=== PATIENT | female | born 1970 | race Caucasian/White ===

== ENCOUNTER 2018-01-01 08:49 | Outpatient (CLI) | payer MEDICARE, MEDICAID ==
--- NOTE | 2018-01-01 12:09 | CT ---
CT ABDOMEN AND PELVIS WITH CONTRAST: Date: 01/01/18 HISTORY: K31.84, gastroparesis. R10.11, right upper quadrant pain. R50.9, Crohn's. COMPARISON: MRI abdomen dated 03/08/17. FINDINGS: Lung bases are clear. No pericardial effusion. Diffuse hepatic steatosis. Prior cholecystectomy. No i ntrahepatic or extrahepatic biliary dilatation. There is mild atrophy of the pancreas, which is thinned. Spleen is unremarkable, as well as the adrenal glands. There is significant contrast remaining within the stomach. There appears to be a gastric bypass procedure. Nonobstructed bilateral renal calculi. No abnormal enhancing renal mass. No hydroureteronephrosis. Th ere are phleboliths in the pelvis. Appendix is visualized and is normal. On the axial images, there a ppear to be phleboliths in the tip of the appendix, although this is actually within the gonadal vein s. No free intraperitoneal gas or fluid. Moderate stool burden throughout the colon. There is a small, f at-containing ventral hernia, supraumbilical. Mild atherosclerotic plaque in the aorta. No aneurysmal dilatation. Moderate degenerative disease of the pubic symphysis. IMPRESSION: 1. Nonobstructive bilateral renal calculi. 2. Diffuse hepatic steatosis. 3. Moderate contrast retained within the stomach can be seen with gastroparesis. There is evidence o f prior gastric bypass. 4. Small, fat-containing ventral hernia, likely an incisional hernia. 5. Normal appearance of the appendix. 6. Phleboliths in the right gonadal veins in the pelvis. 7. Moderate stool burden in the colon. POS: OFF
[2018-01-01] MEDS ORDERED: Iopamidol 370 76% 100 ML VIAL ONE (12:59)
== END 2018-01-01 08:50 | disposition home or self-care (01) ==
LOC: CT 08:49
PROVIDERS: ATTEND Internal Medicine Gastroenterology
DX: K50.90 Crohn's disease, unspecified, without complications (principal); R10.11 Right upper quadrant pain; K31.84 Gastroparesis; N20.0 Calculus of kidney; K76.0 Fatty (change of) liver, not elsewhere classified; K43.9 Ventral hernia without obstruction or gangrene; I87.8 Other specified disorders of veins
CPT/HCPCS: 74177

== ENCOUNTER 2018-02-13 11:30 | Inpatient (IN) | payer MEDICARE, MEDICAID ==
[2018-02-13 12:12] VITALS: BMI 21.9
[2018-02-17] MEDS ORDERED: Ketorolac Tromethamine 30 MG/ML VIAL ONE (10:05)
[2018-02-17] MEDS ORDERED: cefOXitin 2 GM, Syringe 1 ML in Sterile Water 10 ML SLOW IVP SCH (10:15)
[2018-02-17] MEDS ORDERED: Morphine 4 MG/ML VIAL ONE (13:32)
[2018-02-17] MEDS ORDERED: Midazolam HCl 2 mg/2 ml Vial ONE (13:32)
[2018-02-17] MEDS ORDERED: Fentanyl 250 MCG/5 ML VIAL ONE ×3 (13:46→16:56)
[2018-02-17] MEDS ORDERED: Naloxone HCl 0.4 mg/ml Vial IVP PRN (14:00)
[2018-02-17] MEDS ORDERED: Bupivacaine 0.25% 10 ML VIAL EPIDURAL PRN (14:00)
[2018-02-17] MEDS ORDERED: HYDROcodone/Acetaminophen 5/325 mg Tablet PO PRN ×2 (14:00)
[2018-02-17] MEDS ORDERED: Ondansetron HCl/PF 4 MG/2 ML Vial IVP PRN ×3 (14:00→19:47)
[2018-02-17] MEDS ORDERED: diphenhydrAMINE 25 MG CAP PO PRN (14:00)
[2018-02-17] MEDS ORDERED: Naloxone HCl 0.4 mg/ml Vial IV PRN (14:00)
[2018-02-17] MEDS ORDERED: diphenhydrAMINE 50 MG/ML VIAL IVP PRN (14:00)
[2018-02-17] MEDS ORDERED: traMADol HCl 50 MG TAB PO PRN ×2 (14:00)
[2018-02-17] MEDS ORDERED: diphenhydrAMINE 50 MG/ML VIAL IM PRN (14:00)
[2018-02-17] MEDS ORDERED: Promethazine HCl 25 MG SUPP PR PRN (14:00)
[2018-02-17] MEDS ORDERED: Zolpidem Tartrate 5 MG TAB PO PRN (14:00)
[2018-02-17] MEDS ORDERED: Hydrocerin (Eucerin) Cream 120 gm Jar TOP PRN (14:00)
[2018-02-17] MEDS ORDERED: Promethazine HCl 25 MG/ML VIAL IM PRN ×3 (14:00→19:47)
[2018-02-17] MEDS ORDERED: Dexamethasone 20 MG/5 ML VIAL ONE (14:49)
[2018-02-17] MEDS ORDERED: Glycopyrrolate 0.2 MG/ML 5 ML SYRINGE ONE (14:49)
[2018-02-17] MEDS ORDERED: Lidocaine 1% PF 5 ML VIAL ONE (14:49)
[2018-02-17] MEDS ORDERED: PROPOFOL 200 MG/20 ML VIAL ONE (14:49)
[2018-02-17] MEDS ORDERED: Ondansetron HCl/PF 4 MG/2 ML Vial ONE (14:49)
[2018-02-17] MEDS ORDERED: Ropivacaine 0.2% HCl/PF 20 ML ONE (15:35)
[2018-02-17] MEDS ORDERED: Promethazine HCl 25 MG/ML VIAL SLOW IVP PRN (16:56)
[2018-02-17] MEDS ORDERED: HYDROmorphone 2 MG/ML VIAL SLOW IVP PRN (16:56)
[2018-02-17] MEDS ORDERED: Promethazine HCl 25 MG/ML VIAL ONE (17:03)
[2018-02-17] MEDS ORDERED: Bupivacaine 0.5% 10 ML VIAL ONE (17:23)
[2018-02-17] MEDS ORDERED: Bupivacaine 0.25% HCL 30 ML VIAL ONE (17:25)
[2018-02-17] MEDS ORDERED: Ketorolac Tromethamine 30 MG/ML VIAL IVP SCH (18:00)
[2018-02-17] MEDS ORDERED: Acetaminophen 1,000 MG in Premix Bag 1 BAG IVPB SCH ×2 (18:00)
[2018-02-17] MEDS ORDERED: Dextrose 5% in Water 1,000 ML IV PRN (19:47)
[2018-02-17] MEDS ORDERED: hydrALAZINE 20 MG/ML VIAL SLOW IVP PRN (19:47)
[2018-02-17] MEDS ORDERED: Dextrose 50% Abboject 50 ML SYRINGE SLOW IVP PRN (19:47)
[2018-02-17] MEDS: Famotidine 40 MG/4 ML VIAL SLOW IVP SCH (20:57)
[2018-02-17] MEDS: Acetaminophen 1,000 MG in Premix Bag 1 BAG IVPB SCH (20:58)
[2018-02-17] MEDS: Ketorolac Tromethamine 30 MG/ML VIAL IVP SCH (20:58)
[2018-02-17] MEDS: D5 1/2 NS w/20 mEq KCL 1,000 ML IV SCH (20:58)
[2018-02-17] MEDS ORDERED: Famotidine/PF 20 mg/2ml Vial SLOW IVP SCH (21:00)
[2018-02-18] MEDS: Ketorolac Tromethamine 30 MG/ML VIAL IVP SCH ×4 (03:56→20:30)
[2018-02-18] MEDS: Acetaminophen 1,000 MG in Premix Bag 1 BAG IVPB SCH ×4 (03:56→20:28)
[2018-02-18 05:31] LABS: #Eosinphils 0.1 thou/uL (0.0-0.7); #Lymphocytes 1.1 thou/uL (1.20-3.40); #Monocytes 0.6 thou/uL (0.11-0.59); #Neutrophils 9.5 thou/uL (1.40-6.50); %Basophils 0.2 % (0.0-1.0); %Eosinophils 0.5 % (0.0-10.0); %Lymphocytes 9.7 % (21.0-51.0); %Neutrophils 84.6 % (42.0-75.0); Hemoglobin 11.6 g/dL (12.0-16.0); Mean Corpuscular HGB CONC 33.2 g/dL (32.0-36.0); Mean Corpuscular Hemoglobin 31.5 pg (27.0-31.0); Mean Corpuscular Volume 94.9 fl (81.0-99.0); Mean Platelet Volume 7.4 fL (7.4-10.4); Platelet Count 210 thou/uL (130-400); RBC Distribution Width 11.5 % (11.5-14.5); Red Blood Cell (RBC) Count 3.68 mill/uL (4.20-5.40); White Blood Cell (WBC) Count 11.3 thou/uL (4.8-10.8)
[2018-02-18 05:44] LABS: ALT (SGPT) 35 U/L (8-55); AST (SGOT) 34 U/L (5-34); Alkaline Phosphatase 49 U/L (40-150); Anion Gap 9 mmol/L (10-20); BUN (Urea Nitrogen) 17 mg/dL (7.0-18.7); Bilirubin, Total 0.9 mg/dL (0.2-1.2); Calc. Creatinine Clearance 73 mL/min (70-130); Calcium 8.8 mg/dL (7.8-10.44); Carbon Dioxide 25 mmol/L (22-29); Chloride 106 mmol/L (98-107); Estimated GFR-MDRD 62; Globulin 2.3 g/dL (2.4-3.5); Glucose 170 mg/dL (70-105); Potassium 4.1 mmol/L (3.5-5.1); Protein, Total 5.3 g/dL (6.0-8.3); Sodium 136 mmol/L (136-145)
[2018-02-18] MEDS: D5 1/2 NS w/20 mEq KCL 1,000 ML IV SCH ×2 (07:16→15:40)
[2018-02-18] MEDS ORDERED: Enoxaparin Sodium 40 MG/0.4 ML SYRINGE SC SCH ×2 (09:00→09:15)
[2018-02-18] MEDS ORDERED: Famotidine 20 MG TAB PO SCH (09:00)
[2018-02-18] MEDS: Famotidine 40 MG/4 ML VIAL SLOW IVP SCH ×3 (09:19→20:29)
[2018-02-18] MEDS: fentaNYL Citrate/PF 1,250 MCG, Bupivacaine 25 ML in Sodium Chloride 0.9% 250 ML 200 ML EPIDURAL SCH (15:36)
[2018-02-18] MEDS ORDERED: Morphine 4 MG/ML VIAL SLOW IVP SCH (19:45)
[2018-02-18] MEDS ORDERED: HYDROcodone/Acetaminophen 5/325 mg Tablet PO PRN ×2 (23:59)
[2018-02-19] MEDS: Ketorolac Tromethamine 30 MG/ML VIAL IVP SCH ×4 (02:30→20:30)
[2018-02-19] MEDS: D5 1/2 NS w/20 mEq KCL 1,000 ML IV SCH ×2 (02:32→12:41)
[2018-02-19] MEDS: Famotidine 40 MG/4 ML VIAL SLOW IVP SCH ×2 (09:40→21:00)
[2018-02-19] MEDS: Enoxaparin Sodium 40 MG/0.4 ML SYRINGE SC SCH (09:40)
[2018-02-19] MEDS: fentaNYL Citrate/PF 1,250 MCG, Bupivacaine 25 ML in Sodium Chloride 0.9% 250 ML 200 ML EPIDURAL SCH (13:10)
[2018-02-20] MEDS: Ketorolac Tromethamine 30 MG/ML VIAL IVP SCH ×4 (02:22→23:09)
[2018-02-20 04:33] LABS: #Eosinphils 0.4 thou/uL (0.0-0.7); #Lymphocytes 1.3 thou/uL (1.20-3.40); #Monocytes 0.3 thou/uL (0.11-0.59); #Neutrophils 6.6 thou/uL (1.40-6.50); %Basophils 0.1 % (0.0-1.0); %Eosinophils 4.6 % (0.0-10.0); %Lymphocytes 14.6 % (21.0-51.0); %Monocytes 3.3 % (0.0-10.0); %Neutrophils 77.4 % (42.0-75.0); Hemoglobin 9.4 g/dL (12.0-16.0); Mean Corpuscular Hemoglobin 31.5 pg (27.0-31.0); Mean Corpuscular Volume 95.4 fl (81.0-99.0); Mean Platelet Volume 7.2 fL (7.4-10.4); Platelet Count 165 thou/uL (130-400); RBC Distribution Width 11.3 % (11.5-14.5); Red Blood Cell (RBC) Count 2.99 mill/uL (4.20-5.40); White Blood Cell (WBC) Count 8.5 thou/uL (4.8-10.8)
[2018-02-20 04:41] LABS: Anion Gap 9 mmol/L (10-20); BUN (Urea Nitrogen) 12 mg/dL (7.0-18.7); Calc. Creatinine Clearance 94 mL/min (70-130); Calcium 8.6 mg/dL (7.8-10.44); Carbon Dioxide 20 mmol/L (22-29); Chloride 112 mmol/L (98-107); Estimated GFR-MDRD 82; Glucose 137 mg/dL (70-105); Sodium 137 mmol/L (136-145)
[2018-02-20] MEDS: Famotidine 40 MG/4 ML VIAL SLOW IVP SCH ×2 (08:30→23:08)
--- NOTE | 2018-02-20 09:29 | PRG ---
DATE OF SERVICE: 02/20/2018 Ms. Ortez is postoperative day #3 from a laparotomy with a distal gastrectomy and revision of gastro jejunostomy as well as a small bowel stricturoplasty. She continues to tolerate her clear liquids an d denies nausea or vomiting. She does complain of a little more upper abdominal pain that she had pr eviously. Her epidural, which is still in place has been somewhat sporadic depending on whether she is lying down or standing up. She is ambulating well. PHYSICAL EXAMINATION: VITAL SIGNS: She is afebrile with temperature 99, pulse is 83-87, blood pressure 121/79. Urine outp ut is good. She denies a bowel movement, but has had flatus. LUNGS: Clear to auscultation. ABDOMEN: Soft with minimal appropriate tenderness and her incision is healing nicely. She does have normoactive to hypoactive bowel sounds. LABORATORY STUDIES: Reveal that her hemoglobin is 9.4 with a white blood cell count of 8.5, platelet count is 165. Chemistry profile reveals that her CO2 level is a little low at 20. ASSESSMENT: I believe she is doing well following her surgery. I am not certain what the reason for her increased discomfort is, but suspect that it is incisional. The plan is to remove her epidural catheter today and advance up to a full liquid diet. She has horr ible problems with constipation. This will be treated with a couple of enemas today and I will start her on MiraLax. I am hopeful that if she tolerates her diet and remains stable, that she will be ap propriate for discharge tomorrow.
[2018-02-20] MEDS ORDERED: Fleet Enema 133 ML BOT FS SCH ×3 (09:45→15:00)
[2018-02-20] MEDS: D5 1/2 NS w/20 mEq KCL 1,000 ML IV SCH ×2 (10:30)
[2018-02-20] MEDS: Polyethylene Glycol 3350 17 GM Packet PO SCH ×2 (10:30→21:39)
[2018-02-20] MEDS ORDERED: Morphine 4 MG/ML VIAL SLOW IVP PRN ×2 (11:50→11:52)
[2018-02-20] MEDS: Morphine 4 MG/ML VIAL SLOW IVP PRN ×2 (12:00→15:59)
[2018-02-20] MEDS: Acetaminophen 1,000 MG in Premix Bag 1 BAG IVPB SCH ×4 (12:00→23:15)
[2018-02-20] MEDS: Enoxaparin Sodium 40 MG/0.4 ML SYRINGE SC SCH (14:46)
[2018-02-20] MEDS ORDERED: D5 1/2 NS w/20 mEq KCL 1,000 ML IV SCH (17:30)
[2018-02-20] MEDS: Hydrocodone-Acetamin 15 ML UDCUP PO PRN ×2 (17:46→21:39)
[2018-02-21] MEDS: Ketorolac Tromethamine 30 MG/ML VIAL IVP SCH ×3 (03:12→13:22)
[2018-02-21] MEDS: Hydrocodone-Acetamin 15 ML UDCUP PO PRN ×3 (03:13→13:33)
[2018-02-21 04:59] LABS: #Eosinphils 0.3 thou/uL (0.0-0.7); #Lymphocytes 1.1 thou/uL (1.20-3.40); #Monocytes 0.5 thou/uL (0.11-0.59); #Neutrophils 4.3 thou/uL (1.40-6.50); %Basophils 0.5 % (0.0-1.0); %Lymphocytes 17.8 % (21.0-51.0); %Monocytes 8.4 % (0.0-10.0); %Neutrophils 68.4 % (42.0-75.0); Hemoglobin 9.8 g/dL (12.0-16.0); Mean Corpuscular HGB CONC 32.9 g/dL (32.0-36.0); Mean Corpuscular Hemoglobin 31.9 pg (27.0-31.0); Mean Corpuscular Volume 96.8 fl (81.0-99.0); Mean Platelet Volume 7.3 fL (7.4-10.4); Platelet Count 183 thou/uL (130-400); RBC Distribution Width 11.2 % (11.5-14.5); Red Blood Cell (RBC) Count 3.08 mill/uL (4.20-5.40); White Blood Cell (WBC) Count 6.3 thou/uL (4.8-10.8)
--- NOTE | 2018-02-21 06:05 | OP ---
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 OPERATION PERFORMED: Exploratory laparotomy with partial distal gastrectomy and creation of a new Ro ux-en-Y gastrojejunostomy, Belinda-Maia strictureplasty of the small bowel. SURGEON: Brijesh Caceres M.D. ANESTHESIA: General endotracheal. INDICATIONS: The patient is a 47-year-old female. She underwent a distal gastrectomy previously sec ondary to an inflamed obstructive mass within her distal stomach. A Marsha-en-Y reconstruction was cre ated at that time. She has recently had increasing problems with reflux and vomiting and she has wha t appears to be ulceration and stricturing at her prior gastrojejunal anastomosis. She is taken to [facility] operating room at this time for revision. DESCRIPTION OF OPERATION: Informed consent was obtained. The patient was taken to the operating michelle where general endotracheal anesthesia was obtained with the patient in supine position. Abdomen wa s prepped with ChloraPrep and draped in sterile fashion. Midline incision was reopened and dissectio n was carried through skin and subcutaneous tissue. Dissection was carried carefully into the abdomi nal cavity. She has had several operations performed through this upper midline incision. Adhesions were carefully mobilized to gain access into the abdominal cavity. With extensive dissection, I was able to clearly identify the residual stomach, the Marsha limb of the small bowel, the distal jejunoje junostomy. I explored all areas of the abdominal cavity. The small bowel distal to the jejunojejuno stomy was entirely decompressed down to the ileocecal valve. She had an extensive volume of hard for med stool throughout all segments of her colon consistent with chronic constipation. The small bowel of the Marsha limb had a somewhat thickened edematous consistency. There was a stricture just proxima l to the jejunojejunostomy. There was an area just distal to it that had a mild narrowed appearance, but really was not very strictured. The bowel adjacent to the small bowel anastomosis actually had some mild dilatation. The stricture on the proximal aspect, I felt could potentially be symptomatic and I decided to address this with the strictureplasty. I created a longitudinal enterotomy measurin g about 3 cm in length and open this in a full thickness fashion. I then closed this transversely wi th a running locking suture of 3-0 Vicryl. I buttressed this with several interrupted Lembert suture s of 3-0 silk. Attention was then turned to the stomach. I transected the distal stomach with 2 fires of the ALICE-75 stapler. The stomach at this level was relatively thickened and I was concerned about the integrity of the staple line, but with enough stapler compression, I felt that it was able to transect the sto mach and formed the ame appropriately. I then divided the small bowel just distal to the anastom osis with another fire of the ALICE stapler and took down the intervening small bowel mesentery and pas sed a segment off the field. The segment of the small bowel appeared to be viable and of normal avis flori. I created a gastrojejunostomy with the outflow to the left side. This was on the posterior dis gladis aspect of the stomach and was the entire length of the ALICE-75 stapler. The common opening was th en closed with a running locking suture of 3-0 Vicryl, which was inverted with a series of interrupte d sutures of 3-0 silk. I then inverted ame of the stomach staple line with interrupted sutures o f 3-0 silk. Finally, I buttressed the anastomosis appropriately with interrupted sutures of 3-0 silk . The operation was performed without any enteric contents being spilled. The area was thoroughly i rrigated with several liters of warm saline and all irrigant was aspirated. Two sheets of Seprafilm were placed within the abdominal cavity. Fascia was closed with running suture of loop #1 PDS. Skin edges were approximated with skin ame. Telfa and dry gauze dressing was placed externally. The re were no complications. Patient tolerated the procedure well and was taken to recovery room in sta ble condition.
[2018-02-21] MEDS: Polyethylene Glycol 3350 17 GM Packet PO SCH (08:38)
[2018-02-21] MEDS: Enoxaparin Sodium 40 MG/0.4 ML SYRINGE SC SCH (08:38)
[2018-02-21] MEDS: Famotidine 40 MG/4 ML VIAL SLOW IVP SCH (08:39)
[2018-02-21] MEDS: Acetaminophen 1,000 MG in Premix Bag 1 BAG IVPB SCH (13:22)
[2018-02-21 15:13] VITALS: BP 117/79; TEMP 98.1
[2018-02-21] MEDS ORDERED: Famotidine/PF 20 mg/2ml Vial SLOW IVP SCH (21:00)
--- NOTE | 2018-02-23 10:41 | DIS ---
DATE OF ADMISSION: 02/17/2018 DATE OF DISCHARGE: 02/21/2018 ADMISSION DIAGNOSES: Stenosis of a gastrojejunostomy (history of Marsha-en-Y reconstruction following distal gastrectomy). POSTOPERATIVE DIAGNOSES: Stenosis of a gastrojejunostomy (history of Marsha-en-Y reconstruction follow ing distal gastrectomy with additional finding of a small bowel stricture and extensive constipation. ADMISSION HISTORY: The patient is a 47-year-old white female. She has an unusual unfortunate histor y of distal gastric obstruction 5-6 years ago for which she underwent a distal gastrectomy with findi ng of inflammatory process within her distal stomach. This is felt to be an autoimmune process and p erhaps some variant of Crohn's disease. She has been maintained on appropriate medication. She has recently had a prolonged course of issues with retained gastric contents with nausea, vomiting and re flux. She presents at this time for distal gastrectomy with revision and creation of new gastrojejun ostomy. HOSPITAL COURSE: She underwent open surgery on the day of presentation. A new gastrojejunostomy was created utilizing the same Marsha-en-Y drainage. There was also a finding of a small bowel stricture near her jejunojejunostomy and this was treated with stricturoplasty. She was also found to have ext ensive constipation throughout her colon. Following her surgery she had a fairly uneventful hospitalization. She tolerated liquids immediately after surgery. She never had any significant nausea and never had any vomiting. She noted that her reflux was better. Her appropriate abdominal pain seemed to improve with her hospitalization. She had an epidural initially for pain control. As of the date of her discharge on 02/21/2018, she was t olerating a full liquid diet. Her pain was appropriately controlled with oral pain medication. She had remained entirely hemodynamically stable. She was stable for discharge home at that time with in structions to follow up with myself in 2 weeks. She was given a discharge prescription for liquid hy drocodone.
== END 2018-02-21 16:45 | disposition home or self-care (01) | DRG 327 ==
LOC: SURG A 02-17 09:31
PROVIDERS: ADMIT Specialist; ATTEND Specialist
PROC: 0D160ZA Bypass Stomach to Jejunum, Open Approach (ICD-10-PCS; principal; 2018-02-17)
PROC: 0DB60ZZ Excision of Stomach, Open Approach (ICD-10-PCS; 2018-02-17)
PROC: 0DN80ZZ Release Small Intestine, Open Approach (ICD-10-PCS; 2018-02-17)
PROC: 3E0T3BZ Introduction of Anesthetic Agent into Peripheral Nerves and Plexi, Percutaneous Approach (ICD-10-PCS; 2018-02-17)
DX: K91.89 Other postprocedural complications and disorders of digestive system (principal); K50.90 Crohn's disease, unspecified, without complications; K31.89 Other diseases of stomach and duodenum; K21.9 Gastro-esophageal reflux disease without esophagitis; Z90.3 Acquired absence of stomach [part of]; K59.09 Other constipation; K43.2 Incisional hernia without obstruction or gangrene; Z79.899 Other long term (current) drug therapy
CPT/HCPCS: 36415; 80048; 80053; 85025; 88307; A4216; J0131; J0694; J1100; J1650; J1885; J2001; J2250; J2270; J2405; J2550; J2704; J2795; J3010; J3490; J7050; S0020

== ENCOUNTER 2018-02-13 11:54 | Outpatient (CLI) | payer MEDICARE, MEDICAID ==
[2018-02-13 13:20] LABS: #Basophils 0.1 thou/uL (0.0-0.2); #Eosinphils 0.3 thou/uL (0.0-0.7); #Lymphocytes 2.8 thou/uL (1.20-3.40); #Monocytes 0.6 thou/uL (0.11-0.59); #Neutrophils 3.9 thou/uL (1.40-6.50); %Basophils 1.3 % (0.0-1.0); %Eosinophils 4.4 % (0.0-10.0); %Lymphocytes 36.3 % (21.0-51.0); %Monocytes 7.7 % (0.0-10.0); %Neutrophils 50.4 % (42.0-75.0); Hemoglobin 12.6 g/dL (12.0-16.0); Mean Corpuscular HGB CONC 32.9 g/dL (32.0-36.0); Mean Corpuscular Hemoglobin 30.9 pg (27.0-31.0); Mean Platelet Volume 7.5 fL (7.4-10.4); Platelet Count 232 thou/uL (130-400); RBC Distribution Width 11.5 % (11.5-14.5); Red Blood Cell (RBC) Count 4.08 mill/uL (4.20-5.40); White Blood Cell (WBC) Count 7.8 thou/uL (4.8-10.8)
[2018-02-13 13:46] LABS: ALT (SGPT) 44 U/L (8-55); AST (SGOT) 45 U/L (5-34); Albumin 3.8 g/dL (3.5-5.0); Alkaline Phosphatase 88 U/L (40-150); Anion Gap 9 mmol/L (10-20); BUN (Urea Nitrogen) 19 mg/dL (7.0-18.7); Bilirubin, Total 0.3 mg/dL (0.2-1.2); Calc. Creatinine Clearance 0 mL/min (70-130); Calcium 9.4 mg/dL (7.8-10.44); Carbon Dioxide 22 mmol/L (22-29); Chloride 108 mmol/L (98-107); Estimated GFR-MDRD 69; Globulin 2.9 g/dL (2.4-3.5); Glucose 100 mg/dL (70-105); Protein, Total 6.7 g/dL (6.0-8.3); Sodium 135 mmol/L (136-145)
== END 2018-02-13 11:55 | disposition home or self-care (01) ==
LOC: LABBT 11:54
PROVIDERS: ATTEND Specialist
DX: Z01.812 Encounter for preprocedural laboratory examination (principal); K21.9 Gastro-esophageal reflux disease without esophagitis
CPT/HCPCS: 80053; 85025

== ENCOUNTER 2020-08-18 14:00 | Outpatient (CLI) | payer MEDICARE, MEDICAID ==
[~2020-08-18 14:00] MED LIST: Iopamidol-370 76% 500 ML 1 ML ONE
--- NOTE | 2020-08-18 15:02 | CT ---
CT ABDOMEN PELVIS WITH ORAL AND IV CONTRAST: HISTORY: Crohn's disease. Constipation and nausea. COMPARISON: 12/20/2017 FINDINGS: There is a questionable 4 mm parenchymal nodule in the right lower lobe. This appears smaller than th at seen on the CT chest of 09/03/2012. There are postop changes of cholecystectomy, hysterectomy and gastric bypass surgery. Changes of fatty infiltration of the liver again noted without focal mass. A small amount of air is s een in the left intrahepatic biliary duct. The pancreas and adrenal glands are normal. No free air or free fluid is seen in the abdomen or pelvis. The spleen is enlarged measuring 17.7 cm in length. This is new since the last exam. Bilateral nonobs tructing renal calculi are again seen. There is a 12 mm periportal lymph node which measured 5 mm on the previous study of 2018. No retroper itoneal lymphadenopathy seen. There are vascular calcifications without evidence of aneurysmal dilatation of the abdominal aorta. Bony structures are unremarkable. The small bowel loops are not abnormally dilated. There is a moderate amount of fecal material in the colon and rectum. IMPRESSION: 1. Fatty liver 2. Splenomegaly, new since 2018 3. Enlarged 12 mm periportal lymph node, new since 2018. 4. Nonobstructing bilateral renal calculi. 5. Constipation.
== END 2020-08-18 14:01 | disposition home or self-care (01) ==
LOC: BICCT 14:00
PROVIDERS: ATTEND Internal Medicine Gastroenterology
DX: K50.80 Crohn's disease of both small and large intestine without complications (principal); R19.07 Generalized intra-abdominal and pelvic swelling, mass and lump; K59.09 Other constipation; K27.9 Peptic ulcer, site unspecified, unspecified as acute or chronic, without hemorrhage or perforation; M79.7 Fibromyalgia; F11.20 Opioid dependence, uncomplicated; R11.0 Nausea; R59.0 Localized enlarged lymph nodes; N20.0 Calculus of kidney; K59.00 Constipation, unspecified; K76.0 Fatty (change of) liver, not elsewhere classified; R16.1 Splenomegaly, not elsewhere classified
CPT/HCPCS: 74177; Q9967

== ENCOUNTER 2022-07-09 12:32 | Outpatient (CLI) | payer OTHER, MEDICAID | END 2022-07-09 12:33 | disposition home or self-care (01) | LOC: BICCT 12:32 | PROVIDERS: ATTEND Internal Medicine Gastroenterology | DX: K75.81 Nonalcoholic steatohepatitis (NASH) (principal); K50.90 Crohn's disease, unspecified, without complications; R16.1 Splenomegaly, not elsewhere classified; I86.4 Gastric varices; N20.0 Calculus of kidney; K76.0 Fatty (change of) liver, not elsewhere classified | CPT/HCPCS: 74160; 82565 ==

== ENCOUNTER 2022-07-25 14:05 | Outpatient (CLI) | payer OTHER, MEDICAID | END 2022-07-25 14:06 | disposition home or self-care (01) | LOC: SCSMRI 14:05 | PROVIDERS: ATTEND Orthopaedic Surgery | DX: S46.011A Strain of muscle(s) and tendon(s) of the rotator cuff of right shoulder, initial encounter (principal); M75.51 Bursitis of right shoulder; M19.011 Primary osteoarthritis, right shoulder ==